=== PATIENT | male | born 1995 | race Two or more races ===

== ENCOUNTER 2017-09-04 14:06 | Emergency (ER) | payer OTHER ==
[2017-09-04] MEDS ORDERED: Lidocaine 1% 20 ML MDV INJECT ONE (14:28)
[2017-09-04] MEDS ORDERED: Diphtheria,Pertussis(Acell),Tetanus Vaccine 0.5 ML Syringe IM ONE (14:28)
--- NOTE | 2017-09-04 14:56 | PCM.SN ---
- Free Text/Narrative Note: This is Dr. Burris dictating an addendum note as a supervising physician on this case. I agree with history and physical as above and to have personally seen and evaluated this patient. He has intact flexion and extension against resistance and there is no active bleeding. We will place a digital block and plan for repair. Patient will be given a tetanus shot and antibiotics for home. An x-ray will also be performed. He will be referred to hand for follow-up. Please note that due to the x-ray findings we will refer the patient to hand as an open fracture and the Keflex was or the anticipated and be given. Patient was made aware of his x-ray findings and also advised on wound care and he will be splinted. Impression: Lacerations of finger with open fracture
[2017-09-04] MEDS ORDERED: Bacitracin Oint 1 GM U/D Packet TOP ONE (15:25)
--- NOTE | 2017-09-04 16:06 | EDM.PDOC ---
<Lito Aleman Z - Last Filed: 09/04/17 17:34> ED HPI GENERAL MEDICAL PROBLEM - General Chief Complaint: Laceration Stated Complaint: RIGHT MIDDLE FINGER CUT FROM TIRE Time Seen by Provider: 09/04/17 16:00 Source of Information: Reports: Patient History Limitations: Reports: No Limitations - History of Present Illness INITIAL COMMENTS - FREE TEXT/NARRATIVE: HISTORY AND PHYSICAL: History of present illness: 22-year-old male presenting with right middle finger laceration on the anterior and posterior surface. Patient states that he was working on his tires when the rim slipped and struck his right hand causing the laceration. Injury occurred 30 minutes prior to admission to the ER. The wound was dirty, he is unsure when his last time he had his tetanus shot. Patient states that he has feeling around his middle finger, he is able to flex and extend the finger. Patient has not had any injuries to the past, patient does not have any significant past medical history. Patient is not on any long-term medications. Patient did not take any medications currently after sustaining the injury. Patient denies any known drug allergies or allergies to latex. Patient does not have any past surgical history. Patient denies any bleeding disorders or clotting disorders. Patient denied any alcohol use will sustain injury, patient denies smoking, patient denies any illicit drug use. Patient denies any family history of bleeding disorders or clotting disorders. Review of systems: As per history of present illness and below otherwise all systems reviewed and negative. Past medical history: As per history of present illness and as reviewed below otherwise noncontributory. Surgical history: As per history of present illness and as reviewed below otherwise noncontributory. Social history: No reported history of drug or alcohol abuse. Family history: As per history of present illness and as reviewed below otherwise noncontributory. Physical exam: HEENT: Atraumatic, normocephalic, pupils reactive, negative for conjunctival pallor or scleral icterus, mucous membranes moist, throat clear, neck supple, nontender, trachea midline. Lungs: Clear to auscultation, breath sounds equal bilaterally, chest nontender. Heart: S1S2, regular, negative for clicks, rubs, or JVD. Extremities: Right middle finger laceration 2 cm on the mid proximal anterior surface, and a 3-4 cm laceration on the lateral proximal surface of the mid middle finger. Patient is able to flex and extend with good strength on resistance. Neurovascular unremarkable. Patient has appropriate sensory and motor movement of the middle finger. Neuro: Awake, alert, oriented. Cranial nerves II through XII unremarkable. Cerebellum unremarkable. Motor and sensory unremarkable throughout. Exam nonfocal. Procedure note Procedure: Laceration repair of middle finger. Total of 2 lacerations, 1st: 2 cm anterior surface laceration, 3.5 cm laceration on the proximal surface of middle finger Performed by: Dr. Lito Aleman, medicine resident Supervised by: Dr. Burris, attending physician Informed consent: Patient was told that he had 2 lacerations that required simple interrupted suture placements to allow the lacerations to repair appropriately. Patient was told about receiving a digital block, cleansing the area, using appropriate sterile techniques inserting sutures in place in order to approximate the skin and repair the area. Patient was told of the digits and drawbacks of the procedure. Benefits including repair of the area, appropriate wound healing. Drawbacks of the procedure including possible introduction of infection to the site of the infection. Patient agreed and understood the benefits and drawbacks of the procedure and allowed us to go ahead and repair the area. Procedure: Patient sent was digitally blocked with lidocaine total of 7 mL to achieve appropriate digital block of the middle finger of the right side, afterwards area was scrubbed and cleaned appropriately, the patient was then sterilized, Betadine was applied to the area, and using proper sterile technique a total of 3 sutures were placed on the anterior surface of the laceration, and a total of 4 sutures were placed on the posterior surface of the laceration. Complications: None Total blood loss: 5 mL Follow-up instructions: Patient was told to follow-up with plastic surgery secondary to a hairline fracture that was also shown on the x-ray, patient was told to avoid the area getting wet for 24 hours, to watch out for any oozing or pus draining from the area, to watch out for any signs of infection. Patient shall follow up with the plastic surgery as well as family medicine for appropriate outpatient management. Diagnostics: 3 view of the right hand x-ray- hairline fracture nondisplaced proximal metaphases Therapeutics: Please refer to procedure note for laceration repair Impression: 22-year-old male with a laceration of his right middle finger requiring repair, along with suffering a nondisplaced hairline fracture of the proximal metaphysis , Plan: Patient required total of 7 sutures for his laceration repair as well as a splint for his fracture. Patient shall follow up with Dr. Dent for his fracture follow-up due to his open fracture patient shall also follow up with Dr. Aleman at the family medicine clinic for laceration repair follow-up. Patient has been given Keflex 500 mg twice a day for 7 days. Definitive disposition and diagnosis as appropriate pending reevaluation and review of above. Right 3-Middle finger Pain Score (Numeric/FACES): 8 - Related Data Allergies Allergy/AdvReac Type Severity Reaction Status Date / Time No Known Allergies Allergy Verified 09/04/17 14:18 Home Meds: Home Meds Cephalexin [Keflex] 500 mg PO Q12HR 7 Days #14 cap 09/04/17 [Rx] Past Medical History - Past Health History Medical/Surgical History: Denies Medical/Surgical History Social & Family History - Family History Family Medical History: Noncontributory - Tobacco Use Smoking Status *Q: Never Smoker - Caffeine Use Caffeine Use: Reports: Coffee - Recreational Drug Use Recreational Drug Use: No ED ROS GENERAL - Review of Systems Review Of Systems: ROS reveals no pertinent complaints other than HPI. ED EXAM, SKIN/RASH Exam: See Below (Please refer to history of presenting illness) ED SKIN PROCEDURES - Laceration/Wound Repair Right Lac/Wound length In cm: 6.5 Appearance: Subcutaneous, Mildly Contaminated Distal NVT: Neuro & Vascular Intact, No Tendon Injury Anesthetic Type: Digital Local Anesthesia - Lidocaine (Xylocaine): 1% Plain Local Anesthetic Volume: 5cc Skin Prep: Providone-Iodine (Betadine), Saline Exploration/Debridement/Repair: Wound Explored, In a Bloodless Field, Explored to Base Closed with: Sutures Suture Size: 3-0 # of Sutures: 7 Suture Type: Nylon, Interrupted, Simple Drain Placement: No Sterile Dressing Applied: Provider Tetanus Status Addressed: Yes Complications: No - Joint Reduction Pre-Procedure NV Status: Normal Post-Procedure NV Status: Normal Course - Vital Signs Last Recorded V/S: Last Vital Signs Temp 36.2 C 09/04/17 14:18 Pulse 86 09/04/17 17:33 Resp 16 09/04/17 17:33 BP 128/71 09/04/17 17:33 Pulse Ox 97 09/04/17 17:33 - Orders/Labs/Meds Orders: Active Orders 24 hr Category Date Time Status Vaccines to be Administered [RC] PER UNIT ROUTINE Care 09/04/17 14:28 Active DME for Discharge [COMM] Stat Oth 09/04/17 17:37 Ordered Meds: Medications Discontinued Medications Generic Name Dose Route Start Last Admin Trade Name Curt PRN Reason Stop Dose Admin Bacitracin 1 dose 09/04/17 15:25 09/04/17 16:32 Bacitracin Oint 1 Gm TOP 09/04/17 15:26 1 dose ONETIME ONE Administration Diphtheria/Tetanus/Acell Pertussis 0.5 ml 09/04/17 14:28 09/04/17 14:35 Adacel IM 09/04/17 14:29 0.5 ml .ONCE ONE Administration Lidocaine HCl 20 ml 09/04/17 14:28 09/04/17 14:37 Xylocaine 1% INJECT 09/04/17 14:29 20 ml ONETIME ONE Administration Departure - Departure Time of Disposition: 17:10 Disposition: Home, Self-Care 01 Condition: Good Clinical Impression: Open fracture of finger of right hand, Laceration of right middle finger - Discharge Information Prescriptions: Cephalexin [Keflex] 500 mg PO Q12HR 7 Days #14 cap Instructions: Finger Fracture, [id number], Laceration Care, Adult, Easy-to- Read Referrals: PCP,None [Primary Care Provider] - Michelle Dent MD [Physician] - 2 Days Forms: ED Department Discharge Additional Instructions: The following information is given to patients seen in the emergency department who are being discharged to home. This information is to outline your options for follow-up care. We provide all patients seen in our emergency department with a follow-up referral. The need for follow-up, as well as the timing and circumstances, are variable depending upon the specifics of your emergency department visit. If you don't have a primary care physician on staff, we will provide you with a referral. We always advise you to contact your personal physician following an emergency department visit to inform them of the circumstance of the visit and for follow-up with them and/or the need for any referrals to a consulting specialist. The emergency department will also refer you to a specialist when appropriate. This referral assures that you have the opportunity for follow-up care with a specialist. All of these measure are taken in an effort to provide you with optimal care, which includes your follow-up. Under all circumstances we always encourage you to contact your private physician who remains a resource for coordinating your care. When calling for follow-up care, please make the office aware that this follow-up is from your recent emergency room visit. If for any reason you are refused follow-up, please contact the [facility] Emergency Department at and asked to speak to the emergency department charge nurse. Diagnosis: Open nondisplaced hairline fracture of the proximal metaphysis of the middle finger. Impression: You have suffered a trauma care middle finger on the right side that has resulted in a nondisplaced hairline fracture. Due to the nature of the fracture and your injury he will need to follow-up with Dr. Dent who is a hand specialist at her outpatient clinic in the next 1-2 days. We have placed a splint on the finger. Total of 3 interrupted stitches placed on the anterior surface of the middle finger, and she had 4 interrupted stitches placed on the proximal surface of the middle finger. These keep the finger dry for the next 24 hours prior to getting it wet. He'll also been given a prescription for Keflex 500 mg 2 times a day for a total of 7 days. You're also received a tetanus shot but due to the type of injury that you sustained. Please follow-up with Dr. Aleman at the family medicine residency clinic for follow-up in the next 2-3 days. For pain you can take acetaminophen as needed for every 4 hours. If you have any worsening symptoms including pain, swelling, redness of your hand fevers or chills please don't hesitate to come back to the ER or see her primary care physician. [facility]-Plastic Surgery and Hand Surgery Professional Building [address] [place] [id number] - My Orders Last 24 Hours: My Active Orders 09/04/17 17:37 DME for Discharge [COMM] Stat - Assessment/Plan Last 24 Hours: My Active Orders 09/04/17 17:37 DME for Discharge [COMM] Stat <Antonia Burris - Last Filed: 09/04/17 17:47> ED ROS GENERAL - Review of Systems Review Of Systems: ROS reveals no pertinent complaints other than HPI. ED EXAM, SKIN/RASH Exam: See Below Departure - Departure Condition: Good
--- NOTE | 2017-09-04 16:30 | CR ---
EXAMINATION: Right hand HISTORY: Rule out fracture COMPARISON: None TECHNIQUE: 3 views FINDINGS/IMPRESSION: There is a nondisplaced hairline fracture through the proximal metaphysis of the mid third phalanx. Mild overlying soft tissue swelling is noted. The remaining osseous structures an d joint spaces appear intact.
[2017-09-04 17:34] VITALS: BP 128/71
== END 2017-09-04 17:30 | disposition home or self-care (01) ==
LOC: MW.ED 14:06
DX: S62.642B Nondisplaced fracture of proximal phalanx of right middle finger, initial encounter for open fracture (principal); S61.212A Laceration without foreign body of right middle finger without damage to nail, initial encounter; W26.8XXA Contact with other sharp object(s), not elsewhere classified, initial encounter
CPT/HCPCS: 12002; 73130-26-RT; 73130-RT; 90715; 99283

== ENCOUNTER 2024-08-10 19:59 | Emergency (ER) | payer BC ==
[2024-08-10] MEDS: Benzocaine 20% Topical Spray UD MUCMEM ONE (20:29)
[2024-08-10] MEDS: Lidocaine 2% Viscous Solution 15 ML UD PO ONE (20:29)
[2024-08-10] MEDS: Amoxicillin/Clavulanate K 875-125 MG Tab PO ONE (20:29)
[2024-08-10] MEDS: Acetaminophen/HYDROcodone 325-5 MG Tab PO ONE (20:30)
[2024-08-10 20:38] VITALS: BP 155/90; PULSE 91
== END 2024-08-10 20:38 | disposition home or self-care (01) ==
LOC: MW.ED 19:59
DX: K04.7 Periapical abscess without sinus (principal); Z75.8 Other problems related to medical facilities and other health care
CPT/HCPCS: 99282; A9270; 99283